=== PATIENT | male | born 1985 ===

== ENCOUNTER 2017-08-30 13:58 | Emergency (ER) | payer SELFPAY ==
--- NOTE | 2017-08-30 14:00 | ER Report ---
History and Physical Time Seen By MD: 13:59 (KANDI LOZANO MD) HPI/ROS CHIEF COMPLAINT: Dyspnea HISTORY OF PRESENT ILLNESS: Patient is a 32-year-old male who presents to the emergency department with chest pain shortness of breath and palpitations. These symptoms have been going on for the past few days. They do seem to be related to exertion. But patient also experiences the palpitations while lying in bed at night. He admits that the this sensation makes him somewhat anxious. He was formally diagnosed with PVCs approximately one year ago [facility] [place] of palpitations and shortness of breath. He apparently did wear a Holter monitor at that time but does not recall any additional information. He is a nonsmoker but does use tobacco products in the form of chew. He denies any other illicit drug use. He came to the emergency department today because he had been experiencing the palpitations and dyspnea throughout the day since early this morning. REVIEW OF SYSTEMS: Constitutional: No fever, no chills. Eyes: No discharge. ENT: No sore throat. Cardiovascular: Chest discomfort, palpitations Respiratory: Dyspnea Gastrointestinal: No abdominal pain, no vomiting. Genitourinary: No hematuria. Musculoskeletal: No back pain. Skin: No rashes. Neurological: No headache. (KANDI LOZANO MD) Allergies: Coded Allergies: No Known Drug Allergies (Unverified , 08/30/17) Home Meds Active Scripts Atenolol (ATENOLOL) 25 Mg Tablet, 1 TAB PO QDAY for 30 Days, #30 TAB 1 Refill Prov:JODI VIZCAINO Saida DO 08/30/17 Past Medical/Surgical History History of PVCs (KANDI LOZANO MD) Constitutional Vital Sign - Last 24 Hours 08/30/17 08/30/17 08/30/17 08/30/17 14:06 14:07 14:13 14:28 Temp 99.6 Pulse 84 98 98 Resp 16 13 14 B/P (MAP) 136/95 136/95 (109) Pulse Ox 95 98 96 O2 Delivery Room Air 08/30/17 08/30/17 08/30/17 08/30/17 14:30 14:35 14:50 15:00 Pulse 85 102 Resp 16 B/P (MAP) 130/82 (98) 135/89 (104) Pulse Ox 96 93 08/30/17 15:05 Pulse 91 Resp 15 Pulse Ox 96 (LAURORA,JODI V DO) Physical Exam General/Constitutional: Patient is awake, alert, nontoxic and in no acute respiratory distress. Head: Normocephalic and atraumatic. Eyes: Conjunctival clear, Sclera are clear and anicteric. Ears:External canals are clear. Tympanic membranes are clear with normal landmarks and light reflex. Nares: No rhinorrhea or bleeding. Oropharyngeal: Mucous membranes are moist. There is no pharyngeal erythema or exudate. There are no palatal petechiae. Uvula is midline and symmetrical. Neck: Supple, no adenopathy. Cardiovascular: Heart is regular rate and rhythm without audible murmurs, rubs or gallops. Pulmonary: Lungs are clear to auscultation bilaterally. There are no wheezes, rales, or rhonchi. Chest rise is symmetrical Abdomen: Soft, nontender, no guarding or peritoneal signs. Extremities: No gross deformities, No peripheral cyanosis. Able to move all 4 extremities. Neuro: Alert and oriented X3, Skin: No rashes, skin is warm dry and well perfused. (KANDI LOZANO MD) Medical Decision Making Data Points Result Diagram: 08/30/17 1415 08/30/17 1415 Laboratory Hematology Test 08/30/17 14:15 08/30/17 14:35 Red Blood Count 5.73 M/uL (4.00-5.60) Mean Corpuscular Volume 89.8 fL (80.0-96.0) Mean Corpuscular Hemoglobin 31.4 pg (26.0-33.0) Mean Corpuscular Hemoglobin Concent 35.0 g/dL (32.0-36.0) Red Cell Distribution Width 12.7 % (11.5-14.5) Mean Platelet Volume 7.6 fL (7.2-11.1) Neutrophils (%) (Auto) 63.0 % (39.4-72.5) Lymphocytes (%) (Auto) 26.7 % (17.6-49.6) Monocytes (%) (Auto) 7.7 % (4.1-12.4) Eosinophils (%) (Auto) 0.3 % (0.4-6.7) Basophils (%) (Auto) 2.3 % (0.3-1.4) Nucleated RBC Relative Count (auto) 0.0 /100WBC Neutrophils # (Auto) 5.4 K/uL (2.0-7.4) Lymphocytes # (Auto) 2.3 K/uL (1.3-3.6) Monocytes # (Auto) 0.7 K/uL (0.3-1.0) Eosinophils # (Auto) 0.0 K/uL (0.0-0.5) Basophils # (Auto) 0.2 K/uL (0.0-0.1) Nucleated RBC Absolute Count (auto) 0.00 K/uL D-Dimer Quantitative (PE/DVT) 0.30 ug/ml (0-0.50) Sodium Level 142 mmol/L (137-145) Potassium Level 3.7 mmol/L (3.5-5.0) Chloride Level 102 mmol/L (98-107) Carbon Dioxide Level 25 mmol/L (22-30) Blood Urea Nitrogen 8 mg/dl (9-21) Creatinine 1.00 mg/dl (0.66-1.25) Glomerular Filtration Rate Calc > 60.0 Random Glucose 104 mg/dl (75-110) Calcium Level 9.5 mg/dl (8.4-10.2) Magnesium Level 1.8 mg/dl (1.7-2.2) Total Bilirubin 0.8 mg/dl (0.2-1.3) Aspartate Amino Transf (AST/SGOT) 59 U/L (0-35) Alanine Aminotransferase (ALT/SGPT) 41 U/L (0-56) Alkaline Phosphatase 93 U/L (0-126) Troponin I < 0.012 ng/ml Total Protein 8.5 gm/dl (6.3-8.2) Albumin 4.7 g/dl (3.5-5.0) Urine Color Straw Urine Clarity Clear Urine pH 7.0 pH (4.8-9.5) Urine Specific [place] 1.005 Urine Protein Negative mg/dL (NEGATIVE) Urine Glucose (UA) Negative mg/dL (NEGATIVE) Urine Ketones Negative mg/dL (NEGATIVE) Urine Blood Negative (NEGATIVE) Urine Nitrite Negative (NEGATIVE) Urine Bilirubin Negative (NEGATIVE) Urine Urobilinogen Negative mg/dL (0.2-1.9) Urine Leukocyte Esterase Negative (NEGATIVE) Urine RBC None /HPF (0-2/HPF) Urine WBC 1 /HPF (0-5/HPF) Urine Squamous Epithelial Cells None /LPF (</=FEW) Urine Bacteria Negative /HPF (NONE-FEW) Urine Mucus None /HPF (NONE-FEW) Urine Opiates Screen Negative Urine Barbiturates Screen Negative Ur Tricyclic Antidepressants Screen Negative Urine Phencyclidine Screen Negative Urine Amphetamines Screen Negative Urine Benzodiazepines Screen Negative Urine Cocaine Screen Negative Urine Cannabinoids Screen Negative Chemistry Test 08/30/17 14:15 08/30/17 14:35 White Blood Count 8.6 k/uL (4.5-11.0) Red Blood Count 5.73 M/uL (4.00-5.60) Hemoglobin 18.0 g/dL (14.0-18.0) Hematocrit 51.5 % (42.0-52.0) Mean Corpuscular Volume 89.8 fL (80.0-96.0) Mean Corpuscular Hemoglobin 31.4 pg (26.0-33.0) Mean Corpuscular Hemoglobin Concent 35.0 g/dL (32.0-36.0) Red Cell Distribution Width 12.7 % (11.5-14.5) Platelet Count 381 K/uL (150-450) Mean Platelet Volume 7.6 fL (7.2-11.1) Neutrophils (%) (Auto) 63.0 % (39.4-72.5) Lymphocytes (%) (Auto) 26.7 % (17.6-49.6) Monocytes (%) (Auto) 7.7 % (4.1-12.4) Eosinophils (%) (Auto) 0.3 % (0.4-6.7) Basophils (%) (Auto) 2.3 % (0.3-1.4) Nucleated RBC Relative Count (auto) 0.0 /100WBC Neutrophils # (Auto) 5.4 K/uL (2.0-7.4) Lymphocytes # (Auto) 2.3 K/uL (1.3-3.6) Monocytes # (Auto) 0.7 K/uL (0.3-1.0) Eosinophils # (Auto) 0.0 K/uL (0.0-0.5) Basophils # (Auto) 0.2 K/uL (0.0-0.1) Nucleated RBC Absolute Count (auto) 0.00 K/uL D-Dimer Quantitative (PE/DVT) 0.30 ug/ml (0-0.50) Glomerular Filtration Rate Calc > 60.0 Calcium Level 9.5 mg/dl (8.4-10.2) Magnesium Level 1.8 mg/dl (1.7-2.2) Total Bilirubin 0.8 mg/dl (0.2-1.3) Aspartate Amino Transf (AST/SGOT) 59 U/L (0-35) Alanine Aminotransferase (ALT/SGPT) 41 U/L (0-56) Alkaline Phosphatase 93 U/L (0-126) Troponin I < 0.012 ng/ml Total Protein 8.5 gm/dl (6.3-8.2) Albumin 4.7 g/dl (3.5-5.0) Urine Color Straw Urine Clarity Clear Urine pH 7.0 pH (4.8-9.5) Urine Specific [place] 1.005 Urine Protein Negative mg/dL (NEGATIVE) Urine Glucose (UA) Negative mg/dL (NEGATIVE) Urine Ketones Negative mg/dL (NEGATIVE) Urine Blood Negative (NEGATIVE) Urine Nitrite Negative (NEGATIVE) Urine Bilirubin Negative (NEGATIVE) Urine Urobilinogen Negative mg/dL (0.2-1.9) Urine Leukocyte Esterase Negative (NEGATIVE) Urine RBC None /HPF (0-2/HPF) Urine WBC 1 /HPF (0-5/HPF) Urine Squamous Epithelial Cells None /LPF (</=FEW) Urine Bacteria Negative /HPF (NONE-FEW) Urine Mucus None /HPF (NONE-FEW) Urine Opiates Screen Negative Urine Barbiturates Screen Negative Ur Tricyclic Antidepressants Screen Negative Urine Phencyclidine Screen Negative Urine Amphetamines Screen Negative Urine Benzodiazepines Screen Negative Urine Cocaine Screen Negative Urine Cannabinoids Screen Negative Coagulation Test 08/30/17 14:15 D-Dimer Quantitative (PE/DVT) 0.30 ug/ml Toxicology Test 08/30/17 14:35 Urine Opiates Screen Negative Urine Barbiturates Screen Negative Ur Tricyclic Antidepressants Screen Negative Urine Phencyclidine Screen Negative Urine Amphetamines Screen Negative Urine Benzodiazepines Screen Negative Urine Cocaine Screen Negative Urine Cannabinoids Screen Negative Urinalysis Test 08/30/17 14:35 Urine Color Straw Urine Clarity Clear Urine pH 7.0 pH (4.8-9.5) Urine Specific [place] 1.005 Urine Protein Negative mg/dL (NEGATIVE) Urine Glucose (UA) Negative mg/dL (NEGATIVE) Urine Ketones Negative mg/dL (NEGATIVE) Urine Blood Negative (NEGATIVE) Urine Nitrite Negative (NEGATIVE) Urine Bilirubin Negative (NEGATIVE) Urine Urobilinogen Negative mg/dL (0.2-1.9) Urine Leukocyte Esterase Negative (NEGATIVE) Urine RBC None /HPF (0-2/HPF) Urine WBC 1 /HPF (0-5/HPF) Urine Squamous Epithelial Cells None /LPF (</=FEW) Urine Bacteria Negative /HPF (NONE-FEW) Urine Mucus None /HPF (NONE-FEW) (JODI VIZCAINO DO) EKG/Imaging EKG Interpretation EKG shows sinus rhythm with frequent PVCs and couplets. There is no prior EKG to compare to ventricular rate is 98 bpm. Monitor Interpretation: NSR with PVCs (KANDI LOZANO MD) ED Course/Re-evaluation Clinical Indication for ER IV: Hydration, IV Access ED Course 08/30/2017 2:22:29 pm plan at this time will be to initiate a cardiac workup with a single troponin, d-dimer, CBC CMP. We will also obtain a chest x-ray. We will give the patient 324 aspirin and also a milligram of Ativan to see if this helps with his feelings of anxiety. Decision to Disposition Date: Aug 30, 2017 Decision to Disposition Time: 17:00 (KANDI LOZANO MD) ED Course 08/30/2017 3:14:57 pm Signed out pending pts labs. Labs are stable. Pt feeling much better after the ativan. Pts heart rate is between 88-100 with pvcs on monitor. PT has had a holter in the past. Will try to see if b-richa will help slow his heart rate and hopefully make him feel better. PT willing to try as out pt. Atenonolol is on [employer] 4$ list. pts bp is elevated and can handle it. Decision to Disposition Date: Aug 30, 2017 Decision to Disposition Time: 15:22 (JODI VIZCAINO DO) Depart Departure Latest Vital Signs Vital Signs Date Time Temp Pulse Resp B/P (MAP) Pulse Ox O2 Delivery O2 Flow Rate FiO2 08/30/17 15:05 91 15 96 08/30/17 15:00 135/89 (104) 08/30/17 14:06 99.6 Room Air (JODI VIZCAINO DO) Impression: Primary Impression: Symptomatic PVCs Condition: Improved Disposition: HOME OR SELF-CARE Referrals: [facility] New Scripts Atenolol (ATENOLOL) 25 Mg Tablet 1 TAB PO QDAY for 30 Days, #30 TAB 1 Refill Prov: JODI VIZCAINO DO 08/30/17 Patient Instructions: GENERAL ER DISCHARGE INSTRUCTIONS Additional Instructions: Your labs were stable. We sent a script for atenolol which will help reduce your heart rate and blood pressure. Atenolol is once a day. Return if symptoms worsen. KANDI LOZANO MD Aug 30, 2017 14:00 JODI VIZCAINO DO Aug 30, 2017 15:24
--- NOTE | 2017-08-30 14:10 | EKG ---
FACILITY: [facility] - [place] PATIENT NAME: HERMELINDO SCHMITT : [id number] MR: [id number] V: [id number] EXAM DATE: ORDERING PHYSICIAN: KANDI LOZANO TECHNOLOGIST: NICOLE Poole Reason : Blood Pressure : / mmHG Vent. Rate : 098 BPM Atrial Rate : 098 BPM P-R Int : 164 ms QRS Dur : 094 ms QT Int : 378 ms P-R-T Axes : 065 -37 028 degrees QTc Int : 482 ms Sinus rhythm with sinus arrhythmia with occasional and consecutive premature ventricular complexes Left axis deviation Prolonged QT Abnormal ECG No previous ECGs available Confirmed by MARCE COPE ([id number]) on 08/30/2017 6:57:36 PM Referred By: Confirmed By:MARCE COPE
[2017-08-30] MEDS ORDERED: LORazepam 2 MG/ML VIAL IVP ONE (14:15)
[2017-08-30] MEDS ORDERED: ASPIRIN 81 MG CHEW PO ONE (14:15)
[2017-08-30 14:29] LABS: PLATELET COUNT, AUTOMATED 381 K/uL (150-450)
--- NOTE | 2017-08-30 15:08 | RADIOLOGY IMAGING REPORT ---
[place] [facility] [place] NAME[place] Rodo Rowland : 1985 MR: [id number] V: [id number] EXAM DATE: ORDERING PHYSICIAN: KANDI LOZANO TECHNOLOGIST: Location: [facility] - [place] Patient: Rodo Rowland : 1985 Visit/Account:[id number] Date of Sevice: 08/30/2017 CHEST PA AND LAT INDICATION: Flutter in chest COMPARISON: None available FINDINGS: The cardiac silhouette is normal in size. No pneumothorax. Clear lungs. Normal osseous st ructures. No pleural fluid. IMPRESSION: Normal chest radiographs. Report Dictated By: Souleymane Masters MD at 08/30/2017 3:03 PM Report E-Signed By: Souleymane Masters MD at 08/30/2017 3:05 PM WSN:[id number]
[2017-08-30] MEDS ORDERED: ATEN-65 PO (15:23)
[2017-08-30 15:30] VITALS: BP 125/81
== END 2017-08-30 15:36 | disposition home or self-care (01) ==
LOC: ER 14:18
DX: I49.3 Ventricular premature depolarization (principal)
CPT/HCPCS: 71046; 80305; 81001; 83735; 84484; 85025; 85379; 93005; 96374; 99284; J2060; 82040; 82247; 82310; 82374; 82435; 82565; 82947; 84075; 84132; 84155; 84295; 84450; 84460; 84520